=== PATIENT | male | born 1960 | race African-American/Black ===

== ENCOUNTER 2024-05-07 15:03 | Emergency (ER) | payer OTHER ==
[~2024-05-07] VITALS: Ht 182.9 cm; Wt 80.0 kg
[2024-05-07 15:05] VITALS: O2SAT 100
[2024-05-07] MEDS ORDERED: IPRATROPIUM BROMIDE (0.02%) 0.5MG/2.5ML NEB HHN STA (15:36)
[2024-05-07 15:52] LABS: BASOPHILS % 0.9 % (0.0-2.0); DIFFERENTIAL COMMENT 0; EOSINOPHILS % 4.8 % (0.0-5.0); HEMATOCRIT. 45.1 % (42.0-52.0); HEMOGLOBIN. 15.1 g/dL (14.0-18.0); LYMPHOCYTES % 43.4 % (20.0-50.0); MEAN CORPUSCULAR HEMOGLOBIN 30.1 pg (28.0-32.0); MEAN CORPUSCULAR HGB CONC 33.5 g/dL (31.0-37.0); MEAN CORPUSCULAR VOLUME 89.9 fL (80.0-94.0); MEAN PLATELET VOLUME 9.3 fl (7.4-10.4); MONOCYTES % 8.2 % (2.0-8.0); NEUTROPHILS % 42.7 % (40.0-76.0); PLATELET 181 x1000/uL (130-400); RED BLOOD CELL COUNT 5.02 mill/uL (4.7-6.1); RED CELL DISTRIBUTION WIDTH 13.4 % (11.6-14.6); WHITE BLOOD COUNT 4.8 x1000/uL (4.5-11.0)
[2024-05-07 16:00] LABS: CARBON DIOXIDE 25 mEq/L (21-32); CHLORIDE 107 mEq/L (98-107); POTASSIUM 3.4 mEq/L (3.5-5.1); SODIUM 140 mEq/L (136-145)
[2024-05-07] MEDS ORDERED: ALBUTEROL (0.083%) 2.5MG/3ML NEB HHN SCH (16:00)
[2024-05-07 16:01] LABS: CALCIUM 9.4 mg/dL (8.7-10.4); CLARITY URINE CLOUDY (CLEAR); COLOR URINE YELLOW (YELLOW); GLUCOSE URINE NEGATIVE (NEGATIVE); KETONES URINE NEGATIVE (NEGATIVE); LEUKOCYTE ESTERASE URINE NEGATIVE (NEGATIVE); NITRITE URINE NEGATIVE (NEGATIVE); OCCULT BLOOD URINE NEGATIVE (NEGATIVE); PH URINE 5.5 (4.5-8.0); PROTEIN URINE NEGATIVE (NEGATIVE); SPECIFIC GRAVITY URINE 1.012 (1.005-1.030)
[2024-05-07 16:05] LABS: BG BASE EXCESS -4.1 mmol/L (-2.0-3.0); BG DEOXYHEMOGLOBIN 2.9 % (0.0-5.0); BG FRACTION INSPIRED OXYGEN 28; BG HCO3 ACT 19.2 mmol/L (21.0-28.0); BG METHEMOGLOBIN 0.4 % (0.5-1.5); BG OXYHEMOGLOBIN 94.7 % (94.0-98.0); BG PCO2 31.1 mmHg (35.0-48.0); BG PH 7.409 (7.350-7.450); BG PO2 94.2 mmHg (83.0-108.0); BG SAMPLE SITE LEFT BRACHIAL; BG TOTAL HEMOGLOBIN 15.6 g/dL (13.5-17.5); BG VENT MODE NASAL CANNULA
[2024-05-07 16:05] LABS: CREATININE 1.1 mg/dL (0.6-1.3)
[2024-05-07 16:06] LABS: GLUCOSE 151 mg/dL (70-105); TROPONIN I HIGH SENSITIVITY < 4 ng/L (3.0-53); UREA NITROGEN BLOOD 13 mg/dL (9-23)
[2024-05-07 16:35] LABS: BACTERIA URINE NONE SEEN; SQUAMOUS EPITHELIAL CELL URINE FEW /lpf (RARE/1+); WBC URINE 0-2 /hpf (0-2)
[2024-05-07] MEDS: DEXAMETHASONE 4MG TABLET PO ONE (16:44)
[2024-05-07 17:00] VITALS: BP 119/72; PULSE 76; RESP 15; TEMP 36.7; O2SAT 100
== END 2024-05-07 17:15 | disposition home or self-care (01) ==
LOC: ER 15:03
DX: J44.1 Chronic obstructive pulmonary disease with (acute) exacerbation (principal); R31.9 Hematuria, unspecified; I48.91 Unspecified atrial fibrillation; I10 Essential (primary) hypertension; F17.210 Nicotine dependence, cigarettes, uncomplicated; E78.5 Hyperlipidemia, unspecified
CPT/HCPCS: 80048; 81003; 83880; 85025; 84484; 36415; 71045; 82805; 82375; 93005; 99285; 36600; J8540; Z7610 ×2